=== PATIENT | female | born 1980 | race Caucasian/White ===

== ENCOUNTER 2016-09-13 10:05 | Inpatient (IN) | payer MEDICARE, OTHER ==
[~2016-09-13] VITALS: Ht 91.4 cm; Wt 65.0 kg
[2016-09-13 10:07] VITALS: BP 152/68; PULSE 86; RESP 24; TEMP 98; O2SAT 95
[2016-09-13 10:30] VITALS: RESP 18; O2SAT 98
[2016-09-13] MEDS ORDERED: SODIUM CHLORIDE 0.9% FLUSH 10 ML FLUSH IVF PRN (10:30)
--- NOTE | 2016-09-13 10:53 | PD ---
HPI Chief Complaint: Abnormal Results Time Seen by Provider: 10:20 Travel History International Travel<30 days: No Contact w/Intl Traveler<30days: No Traveled to known affect area: No History of Present Illness HPI Patient's 36-year-old female presenting to the emergency department for evaluation of abnormal lab results. Patient was advised by the dialysis center to present to the emergency department for blood transfusion. Patient denies any pain, shortness of breath, rectal bleeding, chest pain. She states that she does have heavy menstrual cycles that last approximately one week. Patient is oxygen dependent with a history of hypertension, insulin-dependent diabetes, asthma, spina bifida, chronic renal failure, nephrectomy, bilateral amputee. She recently moved to the area and does not have a primary care provider at this time. PFSH Past Medical History Hx Anticoagulant Therapy: No Anemia: Yes Diabetes: Yes (insulin-dependent) Patient Takes Glucophage: No Diminished Hearing: No Genitourinary: Yes (nephrostomy tube) Hypertension: Yes Medical other: Yes (SPINA BIFIDA) Musculoskeletal: Yes Respiratory: Yes (ASTHMA oxygen dependent) Integumentary: Yes (PRESSURE ULCER LEFT THIGH) Renal Failure: Yes (on hemodialysis) Tetanus Vaccination: > 5 Years Influenza Vaccination: Yes ?: Not LMP: 09/12/16 Past Surgical History Narrative Surgical Bilateral amputee Eye Surgery: Yes (RIGHT EAR SX) Genitourinary Surgery: Yes (nephrectomy) Neurologic Surgery: Yes (SHUNT) Other Surgery: Yes (NEPHROCTOMY/ FISTULA LEFT UPPER ARM) Social History Alcohol Use: No Tobacco Use: No Substance Use: No Allergies-Medications (Allergen,Severity, Reaction): Coded Allergies: Latex (Verified Allergy, Intermediate, RASH, 09/13/16) Review of Systems Except as stated in HPI: all other systems reviewed are Neg General / Constitutional: No: Fever HENT: No: Lightheadedness Cardiovascular: No: Chest Pain or Discomfort Respiratory: No: Shortness of Breath Gastrointestinal: No: Nausea, Abdominal Pain Genitourinary: No: Pelvic Pain Musculoskeletal: No: Myalgias Neurologic: No: Weakness, Dizziness, Focal Abnormalities Physical Exam Narrative GENERAL: Obese female, resting comfortably in no acute distress. SKIN: Focused skin assessment warm/dry. AV fistula in left upper arm, positive thrill, positive bruit. Left flank nephrostomy tube. 1.5 cm superficial skin ulceration to the left stump, no erythema or exudates noted. HEAD: Atraumatic. Normocephalic. EYES: Pupils equal and round. No scleral icterus. No injection or drainage. ENT: No nasal bleeding or discharge. Mucous membranes pink and moist. NECK: Trachea midline. No JVD. CARDIOVASCULAR: Regular rate and rhythm. No murmur appreciated. RESPIRATORY: No accessory muscle use. Clear to auscultation. Breath sounds equal bilaterally. GASTROINTESTINAL: Abdomen soft, non-tender, nondistended. Hepatic and splenic margins not palpable. MUSCULOSKELETAL: No obvious deformities. No clubbing. No cyanosis. No edema. NEUROLOGICAL: Awake and alert. No obvious cranial nerve deficits. Motor grossly within normal limits. Normal speech. PSYCHIATRIC: Appropriate mood and affect; insight and judgment normal. Data Data Last Documented VS Vital Signs Date Time Temp Pulse Resp B/P Pulse Ox O2 Delivery O2 Flow Rate FiO2 09/13/16 10:31 78 18 97 Nasal Cannula 2 09/13/16 10:07 98.0 152/68 Orders Complete Blood Count With Diff (09/13/16 10:28) Comprehensive Metabolic Panel (09/13/16 10:28) Prothrombin Time / Inr (Pt) (09/13/16 10:28) Act Partial Throm Time (Ptt) (09/13/16 10:28) Urinalysis - C+S If Indicated (09/13/16 10:28) Type And Screen (09/13/16 10:28) Blood Product Administration .UPON TRANSFUSION (09/13/16 10:28) Cath For Specimen (09/13/16 10:28) Ecg Monitoring (09/13/16 10:28) Iv Access Insert/Monitor (09/13/16 10:28) Oximetry (09/13/16 10:28) Sodium Chloride 0.9% Flush (Ns Flush) (09/13/16 10:30) Vascular Access Team Consult PRN (09/13/16 10:38) Vascular Poc Ultrasound (09/13/16 ) ^ Blood Flow Rate (09/13/16 11:43) ^ Dialysate Flow Rate (09/13/16 11:43) ^ Dialyzer (09/13/16 11:43) ^ Concentrate (09/13/16 11:43) ^ Acid Concentrate (09/13/16 11:43) ^ Length Of Dialysis (09/13/16 11:43) ^ Frequency Of Dialysis (09/13/16 11:43) ^ Dialysis Obtain (09/13/16 11:43) ^ Needle Size (09/13/16 11:43) ^ Dialysis Schedule (09/13/16 11:43) Resp Oxygen David C Titrat 1-4 L (09/13/16 ) ^ Dialysis Weight (09/13/16 11:43) ^ Obtain As Needed (09/13/16 11:43) Sodium Chlor 0.9% 1000 Ml Inj (Ns 1000 M (09/13/16 11:43) Sodium Chlor 0.9% 1000 Ml Inj (Ns 1000 M (09/13/16 11:43) Sodium Chlor 0.9% 1000 Ml Inj (Ns 1000 M (09/13/16 11:43) Mannitol Inj (Mannitol Inj) (09/13/16 11:45) Albumin 25% Inj (Albumin 25% Inj) (09/13/16 11:45) Sodium Chloride 0.9% Flush (Ns Flush) (09/13/16 11:45) Heparin Inj (Heparin Inj) (09/13/16 11:45) Gentamicin (Dialysis) Inj (Gentamicin (D (09/13/16 11:45) Ondansetron Inj (Zofran Inj) (09/13/16 11:45) Acetaminophen (Tylenol) (09/13/16 11:45) Diphenhydramine (Benadryl) (09/13/16 11:45) Nitroglycerin Sl (Nitrostat Sl) (09/13/16 11:45) Clonidine (Catapres) (09/13/16 11:45) Epoetin Ty Inj (Epogen Inj) (09/13/16 11:45) Gelatin 12 Mm/7 Mm Top (Gelfoam 12 Mm/7 (09/13/16 11:45) Red Blood Cells (Rbc) (09/13/16 11:51) Urine Culture (09/13/16 10:50) Cbc No Diff, Includes Plts (09/14/16 06:00) Ferritin (09/13/16 12:10) Iron/Tibc Profile (09/13/16 12:10) Renal Functional Panel (09/14/16 06:00) Calcitriol (Rocaltrol) (09/13/16 12:15) Amlodipine (Norvasc) (09/14/16 09:00) Furosemide (Lasix) (09/13/16 18:00) Metoprolol Tartrate (Lopressor) (09/13/16 21:00) Pantoprazole (Protonix) (09/14/16 09:00) Sevelamer (Renvela) (09/13/16 17:00) Tiotropium Inh (Spiriva Inh) (09/14/16 09:00) Budeson-Formot 160-4.5 Mg Inh (Symbicort (09/13/16 21:00) Calcium Carbonate Chew (Tums Chew) (09/13/16 21:00) Labs Laboratory Tests Test 09/13/16 09/13/16 09/13/16 10:50 11:30 11:40 Urine Color GREEN Urine Turbidity CLOUDY Urine pH 7.5 Urine Specific [place] 1.018 Urine Protein 300 mg/dL Urine Glucose (UA) NEG mg/dL Urine Ketones NEG mg/dL Urine Occult Blood LARGE Urine Nitrite NEG Urine Bilirubin NEGATIVE Urine Urobilinogen 0.2 MG/DL Urine Leukocyte Esterase MOD Urine RBC /hpf Urine WBC /hpf Urine WBC Clumps MANY Urine Bacteria MANY /hpf Microscopic Urinalysis Comment CULTURE INDICATED White Blood Count 6.9 TH/MM3 Red Blood Count 2.04 MIL/MM3 Hemoglobin 5.7 GM/DL Hematocrit 17.7 % Mean Corpuscular Volume 86.9 FL Mean Corpuscular Hemoglobin 28.1 PG Mean Corpuscular Hemoglobin 32.4 % Concent Red Cell Distribution Width 17.3 % Platelet Count 240 TH/MM3 Mean Platelet Volume 8.2 FL Neutrophils (%) (Auto) 74.4 % Lymphocytes (%) (Auto) 14.6 % Monocytes (%) (Auto) 4.4 % Eosinophils (%) (Auto) 6.1 % Basophils (%) (Auto) 0.5 % Neutrophils # (Auto) 5.2 TH/MM3 Lymphocytes # (Auto) 1.0 TH/MM3 Monocytes # (Auto) 0.3 TH/MM3 Eosinophils # (Auto) 0.4 TH/MM3 Basophils # (Auto) 0.0 TH/MM3 CBC Comment DIFF FINAL Differential Comment Sodium Level 138 MEQ/L Potassium Level 5.1 MEQ/L Chloride Level 101 MEQ/L Carbon Dioxide Level 26.3 MEQ/L Anion Gap 11 MEQ/L Blood Urea Nitrogen 59 MG/DL Creatinine 5.62 MG/DL Estimat Glomerular Filtration 9 ML/MIN Rate Random Glucose 234 MG/DL Calcium Level 8.3 MG/DL Total Bilirubin 0.3 MG/DL Aspartate Amino Transf 14 U/L (AST/SGOT) Alanine Aminotransferase 10 U/L (ALT/SGPT) Alkaline Phosphatase 179 U/L Total Protein 6.8 GM/DL Albumin 3.0 GM/DL Prothrombin Time 11.7 SEC Prothromb Time International 1.1 RATIO Ratio Activated Partial 27.3 SEC Thromboplast Time Blood Type A POSITIVE Antibody Screen NEGATIVE Crossmatch Leukocyte-Reduced Red Blood Cells Blood Bank Comment MDM Medical Decision Making Medical Screen Exam Complete: Yes Emergency Medical Condition: Yes Interpretation(s) Vital Signs Date Time Temp Pulse Resp B/P Pulse Ox O2 Delivery O2 Flow Rate FiO2 09/13/16 10:31 78 18 97 Nasal Cannula 2 09/13/16 10:07 98.0 86 24 152/68 95 Room Air Differential Diagnosis Anemia of chronic disease versus coagulopathy versus menorrhagia versus other Narrative Course Patient is a 36-year-old female sent by her dialysis center for blood transfusion. Labs ordered and pending, IV access ordered, vascular access team consulted. Patient placed on monitoring, continuous pulse oximetry. Sr. at bedside. CBC shows a hemoglobin of 5.4/17.7 Chemistry with elevated BUN and creatinine 59/5.62. Urinalysis shows green cloudy urine with large amounts of occult blood moderate leukocyte esterase many white blood cells and many bacteria, reflex culture pending. Coags are unremarkable Neil FORDE for Dr. Li placed dialysis orders. Dr. Carr accepted admission after being given report on patient's history, lab findings and plan for dialysis. Patient will be transfused 2 units during hemodialysis today. Will defer treatment of urinary tract infection to hospitalist and cattle farmer pending urine culture Diagnosis Primary Impression: Anemia Qualified Code: D64.9 - Anemia, unspecified type Additional Impressions: ESRD (end stage renal disease) on dialysis Urinary tract infection Qualified Code: T83.512A - Urinary tract infection associated with nephrostomy catheter, initial encounter Admitting Information Admitting Physician Requests: Admit Condition: Stable Vane Del Cid [facility] Sep 13, 2016 10:53
[2016-09-13] MEDS ORDERED: SODIUM CHLOR 0.9% 1000 ML INJ 1,000 ML IV PRN ×3 (11:43)
[2016-09-13 11:44] LABS: AUTOMATED NEUTROPHIL # 5.2 TH/MM3 (1.8-7.7); BASOPHIL % 0.5 % (0.0-2.0); EOSINOPHIL # 0.4 TH/MM3 (0-0.4); EOSINOPHIL % 6.1 % (0.0-4.0); LYMPH % 14.6 % (9.0-44.0); MEAN CELL VOLUME 86.9 FL (80.0-100.0); MEAN CORPUSCULAR HEMOGLOBIN 28.1 PG (27.0-34.0); MEAN CORPUSCULAR HGB CONC 32.4 % (32.0-36.0); MONO % 4.4 % (0.0-8.0); NEUT % 74.4 % (16.0-70.0); PLATELET COUNT 240 TH/MM3 (150-450); RED BLOOD COUNT 2.04 MIL/MM3 (4.00-5.30); RED CELL DISTRIBUTION WIDTH 17.3 % (11.6-17.2); WHITE BLOOD COUNT 6.9 TH/MM3 (4.0-11.0)
[2016-09-13] MEDS ORDERED: ALBUMIN HUMAN 25% 25 GM/100 ML BAGP IV PRN (11:45)
[2016-09-13] MEDS ORDERED: GELATIN 12 MM/7 MM FOAM TOP PRN (11:45)
[2016-09-13] MEDS ORDERED: MANNITOL 12.5 GM/50 ML VIAL IV PRN (11:45)
[2016-09-13] MEDS ORDERED: HEPARIN SODIUM - IV 10,000 UNITS/10 ML VIAL PRN (11:45)
[2016-09-13] MEDS ORDERED: SODIUM CHLORIDE 0.9% FLUSH 10 ML FLUSH IV FLUSH PRN ×2 (11:45→13:30)
[2016-09-13] MEDS ORDERED: EPOETIN ALFA 10,000 UNITS/ML VIAL IV PRN (11:45)
[2016-09-13] MEDS ORDERED: NITROGLYCERIN 0.4 MG SL 25 TABS/BTL SL PRN (11:45)
[2016-09-13] MEDS ORDERED: cloNIDine HCL 0.1 MG TAB PO PRN (11:45)
[2016-09-13] MEDS ORDERED: GENTAMICIN SULFATE (DIALYSIS USE ONLY) 20 MG/2 ML VIAL IV PRN (11:45)
[2016-09-13] MEDS ORDERED: ONDANSETRON HCL 4 MG/2 ML VIAL IV PRN (11:45)
[2016-09-13] MEDS ORDERED: ACETAMINOPHEN 325 MG TAB PO PRN ×2 (11:45→13:30)
[2016-09-13] MEDS ORDERED: diphenhydrAMINE HCL 25 MG CAP PO PRN (11:45)
[2016-09-13 11:46] LABS: HEMO FLAGS DIFF FINAL
[2016-09-13 11:48] LABS: HEMATOCRIT 17.7 % (35.0-46.0)
--- NOTE | 2016-09-13 11:48 | PD.CONS ---
HPI Service Nephrology Reason for Consult Known ESRD on HD. Primary Care Physician No Primary Care Physician History of Present Illness The patient is a 36 yo female who is known to our services for ESRD. She just recently transferred to our outpatient dialysis unit from [facility]. She has been on HD since Jul 2015. Received outpatient labs today that were drawn on 09/10 that showed a Hgb of 5.8. She was advised to come to the ED for transfusion. She reports that she has had to have several blood transfusions in the past related to her heavy menses. Was on her cycle last week. Denies any hematemesis, melena, no chest pain, no SOB, no ALMENDAREZ. Is chronically on O2. Admitting Hgb today 5.4. Due for HD today. (Rosie Pena) Past Family Social History Allergies: Coded Allergies: Latex (Verified Allergy, Intermediate, RASH, 09/13/16) Past Medical History ESRD on HD IDDM HTN Spina Bifida Asthma Bilat LE amputation Past Surgical History Bilat LE ampuation Nephrectomy Nephrostomy tube placement LINA CASAS Reported Medications Albuterol Inhaler 1-2 puffs q4-6h prn Norvasc 5mg po QD Lasix 80mg po BID Levemir 30U SC HS Metoprolol 25mg BID Novolog 10U SC TID with meals Protonix 40mg po QD Renavite po QD Renvela 1600mg TID Spiriva Inh QD Symbicort 160mcg 2 puffs BID Tums 500mg HS Ergocalciferol 50,000U once weekly on Tuesday Active Ordered Medications Current Medications Medications (Trade) Dose Ordered Sig/Omid Route Start Time Stop Time Status Last Admin Sodium Chloride 2 ml 2 ml UNSCH PRN IVF 09/13/16 10:30 Sodium Chloride 1,000 ml @ 0 mls/hr Q0M PRN IV 09/13/16 11:43 UNV Sodium Chloride 1,000 ml @ 200 mls/hr Q5H PRN IV 09/13/16 11:43 UNV (NS 1000 ml Inj) 1,000 ml @ 0 mls/hr Q0M PRN IV 09/13/16 11:43 UNV (Mannitol Inj) 12.5 gm UNSCH PRN IV 09/13/16 11:45 UNV (Albumin 25% Inj) 25 gm UNSCH PRN IV 09/13/16 11:45 UNV (NS Flush) 5 ml UNSCH PRN IV FLUSH 09/13/16 11:45 UNV (Heparin Inj) UNSCH PRN .XX 09/13/16 11:45 UNV (Gentamicin (Dialysis) Inj) 20 mg UNSCH PRN IV 09/13/16 11:45 UNV (Zofran Inj) 4 mg UNSCH PRN IV 09/13/16 11:45 UNV (Tylenol) 650 mg UNSCH PRN PO 09/13/16 11:45 UNV (Benadryl) 25 mg UNSCH PRN PO 09/13/16 11:45 UNV (Nitrostat Sl) 0.4 mg UNSCH PRN SL 09/13/16 11:45 UNV (Catapres) 0.1 mg UNSCH PRN PO 09/13/16 11:45 UNV (Epogen Inj) 10,000 units UNSCH PRN IV 09/13/16 11:45 UNV (Gelfoam 12 Mm/7 Mm Top) 1 foam UNSCH PRN TOP 09/13/16 11:45 UNV Family History NC Social History Lives locally No EtOH Non-smoker No illicits (Rosie Pena) Physical Exam Vital Signs Vital Signs Date Time Temp Pulse Resp B/P Pulse Ox O2 Delivery O2 Flow Rate FiO2 09/13/16 10:31 78 18 97 Nasal Cannula 2 09/13/16 10:30 18 98 Nasal Cannula 2 09/13/16 10:07 98.0 86 24 152/68 95 Room Air Physical Exam GENERAL: Sitting in bed. Sister present in room. NAD SKIN: Warm and dry. HEAD: Atraumatic. Normocephalic. EYES: Pupils equal and round. No scleral icterus. No injection or drainage. ENT: No nasal bleeding or discharge. Mucous membranes pink and moist. NECK: Trachea midline. No JVD. CARDIOVASCULAR: Regular rate and rhythm. RESPIRATORY: No accessory muscle use. Clear to auscultation. Breath sounds equal bilaterally. GASTROINTESTINAL: Abdomen soft, non-tender, nondistended. Hepatic and splenic margins not palpable. MUSCULOSKELETAL: Extremities without clubbing, cyanosis. BLE amputation NEUROLOGICAL: Awake and alert. Normal speech. PSYCHIATRIC: Appropriate mood and affect; insight and judgment normal. (Rosie Pena) Assessment and Plan Problem List: (1) ESRD (end stage renal disease) on dialysis Plan: HD today as scheduled. Continue on MWF schedule Continue on Renvela 1600mg TID Medications should be adjusted for ESRD. Avoid gadolinium (2) Anemia Plan: Transfuse 2U with HD today. Epogen 10,000U with HD. Hold heparin with HD Likely related to heavy menses, but will defer to primary if further w/u indicated (3) Diabetes mellitus Plan: Mgmt as per primary (4) Hypertension Plan: Continue home medications (5) Secondary hyperparathyroidism (of renal origin) Plan: Continue on Calcitriol and Ergocalciferol as per home medications (6) Asthma Plan: Continue home inhalers. (Rosie Pena) Assessment and Plan The exam, history, and the medical decision-making described in the above note were completed with the assistance of the PA-C. I reviewed and agree with the findings presented. (Tyler Li MD) Problem Qualifiers (1) Anemia: Qualified Code: D64.9 - Anemia, unspecified type Rosie Pena Sep 13, 2016 11:48 Tyler Li MD Oct 05, 2016 10:45
[2016-09-13 11:51] LABS: BACTERIA, URINE MANY /hpf
[2016-09-13 11:52] LABS: URINE COLOR GREEN (YELLW/STRAW)
[2016-09-13 11:53] LABS: BLOOD, URINE LARGE (NEG); COMMENT (UR) CULTURE INDICATED; CULTURE IF INDICATED CULTURE INDICATED; GLUCOSE,URINE NEG (NEG); KETONE, URINE NEG (NEG); NITRITE,URINE NEG (NEG); PH, URINE 7.5 (5.0-8.5)
[2016-09-13 12:09] LABS: ALKALINE PHOSPHATASE 179 U/L (45-117); ALT (GPT) 10 U/L (10-53); ANION GAP 11 MEQ/L (5-15); AST (GOT) 14 U/L (15-37); BICARBONATE 26.3 MEQ/L (21.0-32.0); BLOOD UREA NITROGEN 59 MG/DL (7-18); CHLORIDE 101 MEQ/L (98-107); GLOMERULAR FILTRATION RATE 9 ML/MIN (>89); SODIUM (NA) 138 MEQ/L (136-145); TOTAL BILIRUBIN ADULT 0.3 MG/DL (0.2-1.0)
[2016-09-13 12:15] LABS: POTASSIUM 5.1 MEQ/L (3.5-5.1)
[2016-09-13 12:26] LABS: INTERNATIONAL NORMALIZED RATIO 1.1 RATIO; PROTHROMBIN TIME - PATIENT 11.7 SEC (9.8-11.6)
[2016-09-13 12:31] LABS: APTT (PATIENT) 27.3 SEC (24.3-30.1)
[2016-09-13 12:59] LABS: FERRITIN 313 NG/ML (8-252); TRANSFERRIN IRON PROFILE 170 MG/DL (200-360)
[2016-09-13] MEDS ORDERED: CALCITRIOL 0.25 MCG CAP PO SCH (13:00)
[2016-09-13] MEDS ORDERED: DOCUSATE SODIUM 100 MG CAP PO PRN (13:30)
[2016-09-13] MEDS ORDERED: GLUCAGON 1 MG/ML VIAL OTHER PRN (13:30)
[2016-09-13] MEDS ORDERED: NALOXONE HCL 0.4 MG/ML AMP IV PRN (13:30)
[2016-09-13] MEDS ORDERED: DEXTROSE 50% IN WATER 50 ML VIAL(D50) IV PUSH PRN (13:30)
[2016-09-13] MEDS ORDERED: ACETAMINOPHEN/HYDROcodone 325 MG/5 MG TAB PO PRN (13:30)
[2016-09-13] MEDS ORDERED: ACETAMINOPHEN/HYDROcodone 325 MG/7.5 MG TAB PO PRN (13:30)
[2016-09-13] MEDS ORDERED: ONDANSETRON HCL 4 MG/2 ML VIAL IVP PRN (13:30)
[2016-09-13] MEDS ORDERED: SEVEL800 PO (13:32)
[2016-09-13] MEDS ORDERED: PROT40TA PO (13:32)
[2016-09-13] MEDS ORDERED: SPIRCAP INH (13:32)
[2016-09-13] MEDS ORDERED: CALC0.25 PO (13:32)
[2016-09-13] MEDS ORDERED: CLON.1 PO (13:32)
[2016-09-13] MEDS ORDERED: FURO1TAB61 PO (13:32)
[2016-09-13] MEDS ORDERED: TUMS500C CHEW (13:32)
[2016-09-13] MEDS ORDERED: COLA100C3 PO (13:32)
[2016-09-13] MEDS ORDERED: AMLO5 PO (13:32)
--- NOTE | 2016-09-13 13:39 | HHI.HP ---
[facility] No Primary Care Physician Admission Diagnosis anemia, UTI Diagnoses: Chief Complaint: anemia Travel History International Travel<30 Days: No Contact w/Intl Traveler <30 Da: No Traveled to Known Affected Are: No History of Present Illness 36-year-old female with history of ESRD on HD, nephrectomy, insulin dependent diabetes, hypertension, spina bifida, asthma with chronic respiratory failure on home oxygen, sent by her physician today after outpatient routine labs revealed hemoglobin of 5.8. The patient is seen in dialysis, she becomes very upset and tearful when she was told she would likely stay another night in the hospital, and is very difficult to get any further information other than what is in the EMR. The patient states she has had menstrual bleeding for probably a week now, but it has now slowed down tremendously. She denies any lightheadedness, dizziness, chest pain, shortness of breath, abdominal pain, or urinary complaints. Denies any recent fevers or chills. She reports a history of transfusions in the past secondary to menstrual bleeding. She denies any hematochezia or melena. She wants to go home as soon as possible. The patient was seen in dialysis. She stated that she wanted to go home. She says usually when this happens she gets unit of blood and is sent home afterwards. She says she does not want to stay in the hospital overnight by herself. She says otherwise she has been feeling well and has no acute complaints at this time. She has not noticed any abnormal bleeding. Review of Systems ROS Limitations: Uncooperative, Poor Historian Constitutional: DENIES: Fever, Chills Ears, nose, mouth, throat: DENIES: Throat pain, Running Nose, Odynophagia Respiratory: DENIES: Cough, Shortness of breath Cardiovascular: DENIES: Chest pain, Dyspnea on Exertion Gastrointestinal: DENIES: Abdominal pain, Bloody stools, Constipation, Diarrhea , Nausea, Vomiting Genitourinary: DENIES: Urgency, Dysuria Musculoskeletal: DENIES: Back pain, Neck pain Integumentary: DENIES: Pruritus, Rash Hematologic/lymphatic: DENIES: Bruising, Lymphadenopathy Immunologic/allergic: DENIES: Eczema, Urticaria Past Family Social History Past Medical History ESRD on HD chronic anemia insulin dependent diabetes hypertension spina bifida asthma Past Surgical History bilateral lower extremity amputations nephrectomy nephrostomy LUE AVF Reported Medications Albuterol Inhaler 1-2 puffs q4-6h prn Norvasc 5mg po QD Lasix 80mg po BID Levemir 30U SC HS Metoprolol 25mg BID Novolog 10U SC TID with meals Protonix 40mg po QD Renavite po QD Renvela 1600mg TID Spiriva Inh QD Symbicort 160mcg 2 puffs BID Tums 500mg HS Ergocalciferol 50,000U once weekly on Tuesday Allergies: Coded Allergies: Latex (Verified Allergy, Intermediate, RASH, 09/13/16) Active Ordered Medications Current Medications Medications (Trade) Dose Ordered Sig/Omid Route Start Time Stop Time Status Last Admin Sodium Chloride 1,000 ml @ 0 mls/hr Q0M PRN IV 09/13/16 11:43 Sodium Chloride 1,000 ml @ 200 mls/hr Q5H PRN IV 09/13/16 11:43 (NS 1000 ml Inj) 1,000 ml @ 0 mls/hr Q0M PRN IV 09/13/16 11:43 (Mannitol Inj) 12.5 gm UNSCH PRN IV 09/13/16 11:45 (Albumin 25% Inj) 25 gm UNSCH PRN IV 09/13/16 11:45 (NS Flush) 5 ml UNSCH PRN IV FLUSH 09/13/16 11:45 (Heparin Inj) UNSCH PRN .XX 09/13/16 11:45 (Gentamicin (Dialysis) Inj) 20 mg UNSCH PRN IV 09/13/16 11:45 (Zofran Inj) 4 mg UNSCH PRN IV 09/13/16 11:45 (Benadryl) 25 mg UNSCH PRN PO 09/13/16 11:45 (Nitrostat Sl) 0.4 mg UNSCH PRN SL 09/13/16 11:45 (Catapres) 0.1 mg UNSCH PRN PO 09/13/16 11:45 (Epogen Inj) 10,000 units UNSCH PRN IV 09/13/16 11:45 (Gelfoam 12 Mm/7 Mm Top) 1 foam UNSCH PRN TOP 09/13/16 11:45 (Rocaltrol) 2.25 mcg MoWeFr PO 09/13/16 13:00 (Norvasc) 5 mg DAILY PO 09/14/16 09:00 (Lasix) 80 mg BID@09,18 PO 09/13/16 18:00 (Lopressor) 25 mg Q12HR PO 09/13/16 21:00 (Protonix) 40 mg DAILY PO 09/14/16 09:00 (Renvela) 1,600 mg TIDAC PO 09/13/16 17:00 (Spiriva Inh) 18 mcg DAILY INH 09/14/16 09:00 (Symbicort 160-4.5 Inh) 2 puff Q12HR INH 09/13/16 21:00 (Tums Chew) 500 mg HS CHEW 09/13/16 21:00 (NS Flush) 2 ml UNSCH PRN IV FLUSH 09/13/16 13:30 (NS Flush) 2 ml BID IV FLUSH 09/13/16 21:00 (Zofran Inj) 4 mg Q6H PRN IVP 09/13/16 13:30 (Colace) 100 mg Q12H PRN PO 09/13/16 13:30 (Tylenol) 650 mg Q6H PRN PO 09/13/16 13:30 ([place]field 5-325 Mg) 1 tab Q6H PRN PO 09/13/16 13:30 ([place]field 7.5-325 Mg) 1 tab Q6H PRN PO 09/13/16 13:30 (Narcan Inj) 0.4 mg UNSCH PRN IV 09/13/16 13:30 (D50w (Vial) Inj) 25 ml UNSCH PRN IV PUSH 09/13/16 13:30 (Glucagon Inj) 1 mg UNSCH PRN OTHER 09/13/16 13:30 Family History Unable to obtain from the patient Social History Denies any tobacco, alcohol, or illicit drug use. Physical Exam Vital Signs Vital Signs Date Time Temp Pulse Resp B/P Pulse Ox O2 Delivery O2 Flow Rate FiO2 09/13/16 10:31 78 18 97 Nasal Cannula 2 09/13/16 10:30 18 98 Nasal Cannula 2 09/13/16 10:07 98.0 86 24 152/68 95 Room Air Physical Exam GENERAL: Well-nourished, well-developed patient in NAD. SKIN: Warm and dry. No rash. HEAD: Normocephalic. Atraumatic. EYES: Pupils equal and round. No scleral icterus. No injection or drainage. ENT: No nasal bleeding or discharge. Mucous membranes pink and moist. NECK: Supple. Trachea midline. CARDIOVASCULAR: Regular rate and rhythm. S1, S2 noted. No murmur appreciated. RESPIRATORY: No accessory muscle use. Clear to auscultation. Breath sounds equal bilaterally. GASTROINTESTINAL: Abdomen soft, non-tender, nondistended. Normoactive bowel sounds x4. MUSCULOSKELETAL: Bilateral lower extremity amputations. LUE AV Fistula. Left flank nephrostomy tube. NEUROLOGICAL: Awake and alert. No obvious cranial nerve deficits. Motor grossly within normal limits. Normal speech. Laboratory Laboratory Tests Test 09/13/16 09/13/16 09/13/16 09/13/16 10:50 11:30 11:40 12:20 Urine Color GREEN Urine Turbidity CLOUDY Urine pH 7.5 Urine Specific [place] 1.018 Urine Protein 300 Urine Glucose (UA) NEG Urine Ketones NEG Urine Occult Blood LARGE Urine Nitrite NEG Urine Bilirubin NEGATIVE Urine Urobilinogen 0.2 Urine Leukocyte Esterase MOD Urine RBC Urine WBC Urine WBC Clumps MANY Urine Bacteria MANY Microscopic Urinalysis Comment CULTURE INDICATED White Blood Count 6.9 Red Blood Count 2.04 Hemoglobin 5.7 Hematocrit 17.7 Mean Corpuscular Volume 86.9 Mean Corpuscular Hemoglobin 28.1 Mean Corpuscular Hemoglobin 32.4 Concent Red Cell Distribution Width 17.3 Platelet Count 240 Mean Platelet Volume 8.2 Neutrophils (%) (Auto) 74.4 Lymphocytes (%) (Auto) 14.6 Monocytes (%) (Auto) 4.4 Eosinophils (%) (Auto) 6.1 Basophils (%) (Auto) 0.5 Neutrophils # (Auto) 5.2 Lymphocytes # (Auto) 1.0 Monocytes # (Auto) 0.3 Eosinophils # (Auto) 0.4 Basophils # (Auto) 0.0 CBC Comment DIFF FINAL Differential Comment Sodium Level 138 Potassium Level 5.1 Chloride Level 101 Carbon Dioxide Level 26.3 Anion Gap 11 Blood Urea Nitrogen 59 Creatinine 5.62 Estimat Glomerular Filtration 9 Rate Random Glucose 234 Calcium Level 8.3 Iron Level 40 Total Iron Binding Capacity 238 Percent Iron Saturation 16.8 Ferritin 313 Total Bilirubin 0.3 Aspartate Amino Transf 14 (AST/SGOT) Alanine Aminotransferase 10 (ALT/SGPT) Alkaline Phosphatase 179 Total Protein 6.8 Albumin 3.0 Prothrombin Time 11.7 Prothromb Time International 1.1 Ratio Activated Partial 27.3 Thromboplast Time Blood Type A POSITIVE A POSITIVE Antibody Screen NEGATIVE Crossmatch Leukocyte-Reduced Red Blood Cells Blood Bank Comment Date/Time Procedure Status Source Growth 09/13/16 10:50 Urine Culture Received Urine Clean Catch Pending Result Diagram: 09/13/16 1130 09/13/16 1130 Assessment and Plan Problem List: (1) Anemia ICD Code: D64.9 Status: Acute (2) ESRD (end stage renal disease) on dialysis ICD Code: N18.6 Status: Acute Assessment and Plan 36-year-old female with history of ESRD on HD, nephrectomy, insulin dependent diabetes, hypertension, spina bifida, asthma with chronic respiratory failure on home oxygen, sent by her physician today after outpatient routine labs revealed hemoglobin of 5.8. Acute on Chronic Anemia: likely secondary to menorrhagia. Hgb 5.7 upon arrival. Iron studies consistent with anemia of chronic disease, likely secondary to ESRD in combination with recent menses. -2u pRBC transfusion ordered with dialysis. -Repeat labs following transfusion. -check stool hemoccult -give Epogen with dialysis -outpatient f/up with gynecology Follow-up CBC following transfusion. Monitor overnight. Possibly discharge home in the morning. ESRD on HD: chronic -consult nephrology -continue dialysis on MWF schedule -continue Renvela 1600mg TID Abnormal Urinalysis: patient with nephrostomy tube, no urinary symptoms -doubt true UTI as patient is asymptomatic -monitor urine culture Diabetes Mellitus, Insulin Dependent: chronic -continue patient's Levemir 30u hs -Monitor Accucheks and cover with SSI -check HgbA1c Hypertension: chronic -continue patient's Norvasc -monitor BP, adjust antihypertensives Secondary Hyperparathyroidism: chronic -continue patient's Calcitriol and Ergocalciferol Chronic Respiratory Failure on Home O2 secondary to Asthma: chronic, stable -albuterol nebs prn -continue Spiriva -continue O2 DVT Prophylaxis: avoid chemical prophylaxis with anemia, unable to have teds/ SCDs with BLE amputations GI Prophylaxis: continue patient's Protonix Discussed Condition With Discussed with crm system administrator, Dr. Carr Physician Certification 2 Midnight Certification Type: Admission for Inpatient Services Order for Inpatient Services The services are ordered in accordance with Medicare regulations or non- Medicare payer requirements, as applicable. In the case of services not specified as inpatient-only, they are appropriately provided as inpatient services in accordance with the 2-midnight benchmark. Estimated LOS (days): 2 days is the estimated time the patient will need to remain in the hospital, assuming treatment plan goals are met and no additional complications. Post-Hospital Plan: Home Notes: The exam, history, and the medical decision-making described in the above note were completed with the assistance of the mid-level provider. I reviewed and agree with the findings presented. I attest that I had a [id number] encounter with the patient on the same day, and personally performed and documented my assessment and findings in the medical record. Problem Qualifiers (1) Anemia: Qualified Code: D64.9 - Anemia, unspecified type Nirali Toledo PA-C Sep 13, 2016 13:39 Paul Carr DO Sep 13, 2016 16:52
[2016-09-13] MEDS ORDERED: CALCIUM CARBONATE 500 MG CHEWABLE TAB CHEW PRN (14:15)
[2016-09-13] MEDS ORDERED: SEVELAMER CARBONATE 800 MG TAB PO SCH ×2 (17:00→18:00)
[2016-09-13] MEDS: INSULIN ASPART SUPPLEMENTAL SCALE SQ SCH ×2 (17:23→20:58)
[2016-09-13 17:40] VITALS: BP 162/105; PULSE 97; RESP 18; TEMP 97.2; O2SAT 96
[2016-09-13] MEDS ORDERED: FUROSEMIDE 80 MG TAB PO SCH (18:00)
[2016-09-13 18:32] LABS: MEAN CELL VOLUME 88.8 FL (80.0-100.0); MEAN CORPUSCULAR HEMOGLOBIN 29.3 PG (27.0-34.0); PLATELET COUNT 232 TH/MM3 (150-450); RED BLOOD COUNT 3.38 MIL/MM3 (4.00-5.30); REVIEW FLAG FINAL; WHITE BLOOD COUNT 9.2 TH/MM3 (4.0-11.0)
[2016-09-13] MEDS ORDERED: METOPROLOL TARTRATE 25 MG TAB PO SCH (21:00)
[2016-09-13] MEDS ORDERED: INSULIN DETEMIR 100 UNITS/ML VIAL SQ SCH (21:00)
[2016-09-13] MEDS ORDERED: CALCIUM CARBONATE 500 MG CHEWABLE TAB CHEW SCH (21:00)
[2016-09-13] MEDS ORDERED: BUDESONIDE-FORMOTEROL 160/4.5 MCG INHALER INH SCH (21:00)
[2016-09-13] MEDS ORDERED: SODIUM CHLORIDE 0.9% FLUSH 10 ML FLUSH IV FLUSH SCH (21:00)
[2016-09-13 21:49] LABS: HEMOGLOBIN A1a 1.3 %; HEMOGLOBIN A1b 0.8 %; HEMOGLOBIN Ao 78.7 %; HEMOGLOBIN F 1.9 %; HEMOGLOBIN P3 7.2 %
[2016-09-14] MEDS ORDERED: FUROSEMIDE 80 MG TAB PO SCH (09:00)
[2016-09-14] MEDS ORDERED: PANTOPRAZOLE SOD 40 MG DELAYED RELEASE TAB PO SCH ×2 (09:00)
[2016-09-14] MEDS ORDERED: TIOTROPIUM BROMIDE 18 MCG INH INH SCH ×2 (09:00)
[2016-09-14] MEDS ORDERED: CALCITRIOL 0.25 MCG CAP PO SCH (09:00)
[2016-09-14] MEDS ORDERED: DOCUSATE SODIUM 100 MG CAP PO SCH (09:00)
[2016-09-14] MEDS ORDERED: amLODIPine BESYLATE 5 MG TAB PO SCH ×2 (09:00)
== END 2016-09-13 21:58 | disposition home or self-care (01) | DRG 811 ==
LOC: NEPA 10:05 → N05B 17:18
PROVIDERS: ADMIT Hospitalist; ATTEND Hospitalist
PROC: 30233N1 Transfusion of Nonautologous Red Blood Cells into Peripheral Vein, Percutaneous Approach (ICD-10-PCS; principal; 2016-09-13)
PROC: 5A1D00Z (ICD-10-PCS; 2016-09-13)
DX: D50.0 Iron deficiency anemia secondary to blood loss (chronic) (principal); D63.8 Anemia in other chronic diseases classified elsewhere; N92.0 Excessive and frequent menstruation with regular cycle; J96.10 Chronic respiratory failure, unspecified whether with hypoxia or hypercapnia; J45.909 Unspecified asthma, uncomplicated; Z99.81 Dependence on supplemental oxygen; N25.81 Secondary hyperparathyroidism of renal origin; I12.0 Hypertensive chronic kidney disease with stage 5 chronic kidney disease or end stage renal disease; N18.6 End stage renal disease; Z99.2 Dependence on renal dialysis; Z93.6 Other artificial openings of urinary tract status; Z90.5 Acquired absence of kidney; E11.22 Type 2 diabetes mellitus with diabetic chronic kidney disease; Z79.4 Long term (current) use of insulin; Q05.9 Spina bifida, unspecified; Z89.612 Acquired absence of left leg above knee; Z89.611 Acquired absence of right leg above knee; L89.892 Pressure ulcer of other site, stage 2; R82.90 Unspecified abnormal findings in urine
CPT/HCPCS: 36430; 76937; 80053; 81001; 82728; 82948; 83036; 83540; 83550; 85025; 85027; 85610; 85730; 86850; 86900; 86901; 86920; 87086; 90935; 96374; P9016; Q4081